=== PATIENT | female | born 1935 | race Caucasian/White ===

== ENCOUNTER 2016-09-05 12:22 | Observation (INO) | payer OTHER ==
[~2016-09-05] VITALS: Ht 162.6 cm; Wt 65.7 kg
--- NOTE | 2016-09-05 12:53 | DIAGNOSTIC IMAGING REPORT ---
PROCEDURE: CT HEAD WITHOUT CONTRAST INDICATION: STROKE TECHNIQUE: Noncontrast axial images with sagittal and coronal reformations. COMPARISON: None. FINDINGS: Moderate cortical atrophy. Normal ventricular system. Moderate white matter chronic ischemic changes which may obscure a small acute CVA. There is no evidence of a hemorrhage, mass or midline shift. Extensive atherosclerosis of the vertebral and carotid arteries. Partially opacified right mastoid air cells. Visualized sinuses are clear. IMPRESSION: 1. Moderate atrophy and white matter chronic ischemic changes. A small acute CVA could be obscured by these underlying chronic ischemic changes. MRI may be useful for further evaluation if clinically warranted. 2. Partial right mastoid air cells opacification suggestive of mastoiditis 3. Findings discussed with Dr. Jerry at 12:49 p.m., [place] Standard Time
--- NOTE | 2016-09-05 12:56 | DIAGNOSTIC IMAGING REPORT ---
PROCEDURE: XR CHEST 1 VIEW INDICATION: SHORTNESS OF BREATH TECHNIQUE: Portable AP view 12:46 p.m. COMPARISON: None. FINDINGS: Lungs are clear. Heart and mediastinum are normal. Thorax is normal. IMPRESSION: 1. Negative chest.
--- NOTE | 2016-09-05 13:59 | DIAGNOSTIC IMAGING REPORT ---
PROCEDURE: US BILATERAL CAROTID DOPPLER INDICATION: UNILATERAL WEAKNESS TECHNIQUE: Color Doppler duplex imaging of the carotid and vertebral vessels. COMPARISON: None. FINDINGS: Minimal plaque formation of the bifurcations bilaterally. Vessels are patent. Cardiac arrhythmia. Right common carotid artery peak systolic velocity 87 cm/second. Right internal carotid artery peak systolic velocity 87 cm/second. Right external carotid artery peak systolic velocity 84 cm/second. Right bspbsnhl-oj-vqzwzu carotid artery ratio 1.0 Right vertebral artery peak systolic velocity 29 cm/second antegrade. Left common carotid artery peak systolic velocity 70 cm/second. Left internal carotid artery peak systolic velocity 79 cm/second. Left external carotid artery peak systolic velocity 78 cm/second. Left gkudegsc-of-pxxlld carotid artery ratio 1.1 Left vertebral artery peak systolic velocity 45 cm/second antegrade. IMPRESSION: 1. Minimal plaque formation of the bifurcations bilaterally 2. Bilateral ICA 5-15% stenosis 3. Cardiac arrhythmia Velocity criteria are extrapolated from diameter data as defined by the Society of Radiologists in Ultrasound Consensus Conference, Radiology 2003; 229; 340-346.
--- NOTE | 2016-09-05 13:59 | DIAGNOSTIC IMAGING REPORT ---
PROCEDURE: US BILATERAL CAROTID DOPPLER INDICATION: UNILATERAL WEAKNESS TECHNIQUE: Color Doppler duplex imaging of the carotid and vertebral vessels. COMPARISON: None. FINDINGS: Minimal plaque formation of the bifurcations bilaterally. Vessels are patent. Cardiac arrhythmia. Right common carotid artery peak systolic velocity 87 cm/second. Right internal carotid artery peak systolic velocity 87 cm/second. Right external carotid artery peak systolic velocity 84 cm/second. Right khptjxoe-fb-rgilxb carotid artery ratio 1.0 Right vertebral artery peak systolic velocity 29 cm/second antegrade. Left common carotid artery peak systolic velocity 70 cm/second. Left internal carotid artery peak systolic velocity 79 cm/second. Left external carotid artery peak systolic velocity 78 cm/second. Left evsmuwri-nk-lpgbbq carotid artery ratio 1.1 Left vertebral artery peak systolic velocity 45 cm/second antegrade. IMPRESSION: 1. Minimal plaque formation of the bifurcations bilaterally 2. Bilateral ICA 5-15% stenosis 3. Cardiac arrhythmia Velocity criteria are extrapolated from diameter data as defined by the Society of Radiologists in Ultrasound Consensus Conference, Radiology 2003; 229; 340-346.
--- NOTE | 2016-09-05 15:09 | ED CLINICAL REPORT ---
Clinical Report - Physicians/Mid Levels [facility] [address] [place] [address] 09/05/2016 12:24 Patient: NAVYA CUETO Time Seen: 12:27. Arrived- By ambulance. Historian- patient and EMS personnel. HISTORY OF PRESENT ILLNESS Chief Complaint: WEAKNESS, DIFFICULTY WALKING and IMPAIRED SPEECH. ALTERED CONSCIOUSNESS. This started about 1 hour 45 minutes ago; but she also states that she had a brief, similar episode yesterday and is still present. It was abrupt in onset and has been waxing/waning. The patient has had weakness of the right arm and right hand. She has had difficulty with speech. She has had moderate difficulty walking. It has been associated with weakness in the right leg. At its maximum deficit described as moderate. When seen in the E.D., it was almost gone. No dizziness, seizure or blackouts. She has had altered mental status (initially states she was confused). Usually is alert and oriented X3 and has normal mobility. Similar symptoms previously: None. Recent medical care: The patient was seen recently in a clinic. REVIEW OF SYSTEMS No fever, headache, head injury, chest pain or difficulty breathing. No cough, sore throat, abdominal pain, nausea or diarrhea. No black stools, difficulty with urination, skin rash, enlarged lymph nodes or bloody stools. The patient has had lower back pain. It has been similar to previous symptoms. All systems otherwise negative, except as recorded above. PAST HISTORY Chronic obstructive pulmonary disease. Hyperlipidemia. Hypothyroidism. Seizures per old record - unclear history. GI bleeding felt to be diverticular in origin per patient report - [place] [facility] [place] Mateo Gardner (GI) consulting. Polyps (colon). GE reflux. Fibroids. Arthritis (especially right hip). Left shoulder rotator cuff tear (partial). Back pain: (with DDD and DJD). Anxiety problems. Depression. ( First deg AV block ARCUS (atypical squamous cells of undetermined significance)). ( Chronic Tinnitus left ear). ( cervical radiculopathy). ( Polymyalgia Rheumatica). ( vitamin D deficiency). Surgeries: Cholecystectomy. Colonoscopy. Had complete abdominal hysterectomy with bilateral salpingectomy and oophorectomy. Thyroid surgery. Medications: Diclofenac Epolamine Transdermal, QID. Levothyroxine Sodium Oral 112 mcg, daily. Losartan Potassium Oral 100 mg, daily. Magnesium Oral. Multivitamins Oral. Pravastatin Sodium Oral (Tablet 10 mg), 2x a day. Tiffanie-C Oral. Folic Acid Oral (Tablet 1 mg), daily. Lidoderm External (Patch 5 %), daily (Remove patch nightly). Omeprazole Oral 20 mg, daily. PredniSONE Oral 15 mg, daily. Prenate Oral. Sertraline HCl Oral 50 mg, daily. Allergies: Amoxicillin. Atorvastatin. Flu Virus Vaccine. LIsinopril. Macrobid. Statins. Sulfa Antibiotics. SOCIAL HISTORY Former smoker, end date 1988. Occasional alcohol use. No drug use. FAMILY HISTORY Mother and Father are ; One sister who is alive. ADDITIONAL NOTES The nursing notes have been reviewed. PHYSICAL EXAM Vital Signs: 09/05/2016 12:33 BP: 219/76. HR: 82. RR: 20. O2 saturation: 100%. Temp: 97.5 F. End tidal CO2: 35 mmHg. Pain level now: 0/10. Appearance: Alert. Anxious. Patient in mild distress. Odor of alcohol is not present. Speech is not slurred. Head: Head atraumatic. Eyes: Pupils equal, round and reactive to light. ENT: Normal ENT inspection. Airway intact. Pharynx normal. Neck: Normal inspection. Neck supple. No meningeal signs or carotid bruit. CVS: Normal heart rate and rhythm. Pulses normal. Respiratory: No respiratory distress. Breath sounds normal. Abdomen: Soft and nontender. Back: Normal inspection. Mild soft-tissue tenderness in the right lower and left lower lumbar area. (OTC (?lidocaine) patches on the SI area bilaterally; no signs of erythema, warmth or swelling). Skin: No cyanosis. Skin warm and dry. No pallor. Normal skin color. No rash. Normal skin turgor. Skin not cool on palpation. No diaphoresis. Extremities: Extremities exhibit normal ROM. No calf tenderness. No lower extremity edema. Neuro: Alert. Oriented X 3. Abnormal mood/affect. Speech normal. Cranial nerves normal (as tested). No cerebellar findings. No motor deficit. No sensory deficit. Reflexes normal. Reflex exam: right biceps 2+, left biceps 2+, right patellar 2+ and left patellar 2+. NIH Stroke Scale: score 0. Level of Consciousness: alert (0). LOC Questions: both (0). LOC Commands: both (0). Best gaze: normal (0). Visual field loss: none (0). Facial palsy: normal (0). Motor arm: no drift right arm (0) and no drift left arm (0). Motor leg: no drift right leg (0) and no drift left leg (0). Limb ataxia: none (0). Sensory loss: none (0). Aphasia: none (0). Dysarthria: normal (0). Extinction and inattention: none (0). LABS, X-RAYS, AND EKG EKG: EKG time: (12:57). Normal sinus rhythm. Rate: 80. Normal P waves. Normal SHARMIN. Normal QRS complex. LVH. Left axis deviation. Non-specific ST segment / T wave abnormalities. The study has been interpreted contemporaneously by me. The EKG appears to be a good tracing. Rhythm Strip #1: Normal sinus rhythm. Regular rhythm. Narrow QRS complexes. No ectopy. Chest X-ray: No acute disease. Normal lung markings present. Normal heart size. Mediastinum normal. Great vessels normal. No infiltrate. Views: AP (portable). Technique: good. The X-rays were interpreted contemporaneously by me. The X-rays were discussed with the radiologist (via PACs note). Duplex Ultrasound: Right and left carotid study. Negative results. The exam was performed by a marine engineering technicians. The study was discussed with the radiologist (via tech). MRI Brain: Note- PROCEDURE: MR BRAIN WITHOUT CONTRAST INDICATION: ALTERED MENTAL STATUS TECHNIQUE: Sagittal T1 FLAIR; coronal T2; axial T1 FLAIR, T2-weighted FLAIR, T2 FSE, gradient echo T2, DWI and ADC sequences. COMPARISON: Head CT 09/05/2016. FINDINGS: Moderate cortical atrophy and white matter chronic ischemic changes bilaterally. Mild chronic ischemic changes of the miriam. There is no evidence of an acute CVA, hemorrhage, mass or midline shift. Normal vascular flow voids. Orbits and sinuses are clear. Opacification of the mastoids bilaterally. IMPRESSION: 1. No evidence of an acute CVA 2. Moderate atrophy 3. Moderate white matter and mild pontine chronic ischemic changes 4. Opacification of the mastoids bilaterally suggestive of mastoiditis. Study type: The study was independently viewed by me, interpreted by the radiologist and discussed with the radiologist. Laboratory Tests: UA-Culture if indicated: (EUSEBIA: 09/05/2016 12:55) ( MsgRcvd 09/05/2016 13:40) Final results Test Result Flag Units (Reference) URINE COLOR STRAW URINE APPEARANCE CLEAR URINE GLUCOSE NEGATIVE (NEGATIVE) URINE BILIRUBIN NEGATIVE (NEGATIVE) URINE KETONE NEGATIVE (NEGATIVE) URINE SPECIFIC GRAVITY 1.010 (1.010-1.030) URINE PH 7.0 (5.0-8.0) URINE PROTEIN NEGATIVE (NEGATIVE) URINE UROBILINOGEN 0.2 EU/dL (0.2-1.0) URINE NITRITE NEGATIVE (NEGATIVE) URINE BLOOD 1+ (NEGATIVE) URINE LEUK ESTERASE NEGATIVE (NEGATIVE) URINE RBC NONE SEEN rbc/hpf (0-1) URINE WBC NONE SEEN wbc/hpf (0-1) URINE EPITHELIAL CELLS NONE SEEN EPI/hpf (0-5) URINE BACTERIA NONE SEEN (NONE SEEN) URINE COMMENT CULT NOT INDICATED URINE CULTURES ARE SET-UP BASED ON THE FOLLOWING CRITERIA:POSITIVE NITRITEPOSITIVE LEUKOCYTE ESTERASEGREATER THAN 10 WHITE BLOOD CELLSMODERATE (2+) OR GREATER BACTERIA CBC w Diff: (EUSEBIA: 09/05/2016 12:35) ( MsgRcvd 09/05/2016 12:46) Final results Test Result Flag Units (Reference) WHITE BLOOD COUNT 11.8 H K/uL (4.5-11.5) RED BLOOD COUNT 4.31 M/uL (4.00-5.20) HEMOGLOBIN 12.7 gm/dL (12.0-16.0) HEMATOCRIT 38.1 % (36.0-46.0) MEAN CELL VOLUME 88 fL (80-100) MEAN CORPUSCULAR HGB 29 pg (26-34) MEAN CORPUSCULAR HGB CONC 33 g/dL (31-37) RED CELL DISTRIBUTION WIDTH 15.3 H % (11.6-14.8) PLATELET COUNT 351 K/uL (150-400) NEUTROPHIL % 85.5 H % (50-75) LYMPH % 9.1 L % (25-40) MONO % 4.5 % (3-14) EOSINOPHIL % 0.5 % (0-4) BASOPHIL % 0.4 % (0-2) PT with INR: (EUSEBIA: 09/05/2016 12:35) ( [facility] Final results Test Result Flag Units (Reference) INR 1.0 (0.8-1.2) Low Intensity Therapy: INR 1.5-2.0 PT range 18.5-23.1Mod.Intensity Therapy: INR 2.0-3.0 PT range 23.1-31.5High Intensity Therapy: INR 2.5-3.5 PT range 27.4-35.5High Intensity Therapy 2: INR 3.0-4.0 PT range 31.5-39.3 APTT 29 SECONDS (24-34) FIBRINOGEN 370 mg/dL (193-455) D-DIMER QUANTITATIVE 0.51 ug/mLFEU (0.27-0.52) The primary value of this quantitative assay relates toits negative predictive value (i.e. exclusion) of pulmonaryembolism/deep vein thrombosis/DIC.Elevated levels of d-dimer may also occur with:, age, cancer, inflammation, liver disease,post-op, infection, hematoma, coronary disease, peripheralarteriopathy, bleeding disorders and thrombolytic treatment.Results should be correlated with other clinical andradiological data.Testing Methodology: Latex Immunoassay Urine Drug Screen: (EUSEBIA: 09/05/2016 12:55) ( MsgRcvd 09/05/2016 13:17) Final results Test Result Flag Units (Reference) AMPHETAMINE/METHAMPHETAMINE NEGATIVE (NEGATIVE) BARBITURATE NEGATIVE (NEGATIVE) BENZODIAZEPINE NEGATIVE (NEGATIVE) CANNABINOID NEGATIVE (NEGATIVE) COCAINE NEGATIVE (NEGATIVE) ECSTASY NEGATIVE (NEGATIVE) METHADONE NEGATIVE (NEGATIVE) OPIATE NEGATIVE (NEGATIVE) The urine drug screen is a qualitative screening test fordrug overdose and abuse. All screen results should beconsidered as presumptive.Drugs screened for are as follows:BenzodiazepinesCocaineAmphetamines/MetamphetaminesTHC (Tetrahydrocannabinol)OpiatesBarbituratesEcstasyMethadonePositive results are unconfirmed. For confirmation, notifythe lab for the specimen to be sent to the reference lab.All confirmations must be performed by a differentmethodology.The ingestion of natural herbal and plant productscontaining Ephedra/Ephedra metabolites can produce in urineone or more substances capable of cross reacting withamphetamine/methamphetamine immunoassays. These testsprovide a preliminary result only. A more specificalternative chemical method must be used to obtain aconfirmed analytical result. [id number]: (EUSEBIA: 09/05/2016 12:35) ( MsgRcvd 09/05/2016 14:02) Final results Test Result Flag Units (Reference) CARBAMAZEPINE/TEGRETOL < 0.5 L ug/mL (4.0-12.0) CHEM 13 PANEL: (EUSEBIA: 09/05/2016 12:35) ( NvgRcvd 09/05/2016 14:41) Final results Test Result Flag Units (Reference) GLUCOSE 94 mg/dL (70-110) BUN 23 H mg/dL (7-18) CREATININE 0.8 mg/dL (0.6-1.3) Estimated GFR >60 mL/min Estimated GFR- >60 mL/min Note: Persistent reduction over 3 months in eGFR<60 mL/min/1.73 m2 defines CKD. Patients with eGFR values>=60 mL/min/1.73 m2 may also have CKD if evidence ofpersistent proteinuria. Additional information may be foundat [email or web address].org. SODIUM 136 mmol/L (136-145) POTASSIUM 3.8 mmol/L (3.5-5.1) CHLORIDE 99 mmol/L (98-107) CARBON DIOXIDE 24 mmol/L (21-32) CALCIUM 9.2 mg/dL (8.5-10.1) TOTAL PROTEIN 7.1 g/dL (6.4-8.2) ALBUMIN 3.6 g/dL (3.3-5.0) BILIRUBIN, TOTAL 0.3 mg/dL (0.0-1.0) ALKALINE PHOSPHATASE 61 U/L (46-116) AST (SGOT) 19 U/L (15-37) ALT (SGPT) 23 U/L (12-78) MAGNESIUM 1.5 L mg/dL (1.8-2.4) CPK 44 U/L (24-260) TROPONIN I <0.05 L ng/mL (0.00-1.5) TROPONIN REFERENCE RANGE:<0.1 NEGATIVE0.1-1.5 INDETERMINANT>1.5 POSITIVE THYROID STIMULATING HORMONE 1.011 uIU/mL (0.30-3.74) Type & Screen: (EUSEBIA: 09/05/2016 12:35) ( MsgRcvd 09/05/2016 13:54) Final results Test Result Flag Units (Reference) PATIENT BLOOD TYPE O Positive ANTIBODY SCREEN NEGATIVE . Pulse Oximetry: 09/05/2016 12:33 O2 saturation: 100%. (FIO2 - room air). Interpretation: normal. PROGRESS AND PROCEDURES Course of Care: ASA 325 mg po. Metoprolol 5 mg IV. 1 L NS IV. Dilaudid 0.5mg IV (given prior to MRI). Pt has remained asymptomatic in the ED. Most c.w TIA. Pt will need to be admitted for further work up / testing / monitoring. Pt was refusing ASA; now accepting after long discussion of risks and benefits. 15:20 09/05/16. Dr Dueñas request MRI today - will attempt. 15:31 09/05/16. Pt was refusing MRI; now accepting after long discussion of risks and benefits. MRI is unremarkable now. Discussed case with hospitalist, (Leana). Reviewed test results. Agreed upon treatment plan. Health care provider will see patient in ED. Patient/family counseled. Old ED, inpatient and clinic records reviewed. (records from [facility] and [facility] [place] ordered and reviewed). Transition orders written. Disposition: Observation in Acute Care. Condition: stable and improved. 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 Uncontrolled essential hypertension. Mild hypomagnesemia. Mild leukocytosis. No lymphocytosis. Chronic low back pain. INSTRUCTIONS Follow-up: Screening today revealed the patient's blood pressure to be in the hypertensive range. The patient should follow up with a primary care provider for blood pressure management. The patient was admitted and blood pressure will be managed during the admission. (Electronically signed by Reza Jerry DO 09/05/2016 17:30)
--- NOTE | 2016-09-05 15:09 | ED CLINICAL REPORT ---
Clinical Report - Physicians/Mid Levels [facility] [address] [place] [address] 09/05/2016 12:24 Patient: NAVYA CUETO Time Seen: 12:27. Arrived- By ambulance. Historian- patient and EMS personnel. HISTORY OF PRESENT ILLNESS Chief Complaint: WEAKNESS, DIFFICULTY WALKING and IMPAIRED SPEECH. ALTERED CONSCIOUSNESS. This started about 1 hour 45 minutes ago; but she also states that she had a brief, similar episode yesterday and is still present. It was abrupt in onset and has been waxing/waning. The patient has had weakness of the right arm and right hand. She has had difficulty with speech. She has had moderate difficulty walking. It has been associated with weakness in the right leg. At its maximum deficit described as moderate. When seen in the E.D., it was almost gone. No dizziness, seizure or blackouts. She has had altered mental status (initially states she was confused). Usually is alert and oriented X3 and has normal mobility. Similar symptoms previously: None. Recent medical care: The patient was seen recently in a clinic. REVIEW OF SYSTEMS No fever, headache, head injury, chest pain or difficulty breathing. No cough, sore throat, abdominal pain, nausea or diarrhea. No black stools, difficulty with urination, skin rash, enlarged lymph nodes or bloody stools. The patient has had lower back pain. It has been similar to previous symptoms. All systems otherwise negative, except as recorded above. PAST HISTORY Chronic obstructive pulmonary disease. Hyperlipidemia. Hypothyroidism. Seizures per old record - unclear history. GI bleeding felt to be diverticular in origin per patient report - admitted to [facility] 05/18/[address] Mateo Gardner (GI) consulting. Polyps (colon). GE reflux. Fibroids. Arthritis (especially right hip). Left shoulder rotator cuff tear (partial). Back pain: (with DDD and DJD). Anxiety problems. Depression. ( First deg AV block ARCUS (atypical squamous cells of undetermined significance)). ( Chronic Tinnitus left ear). ( cervical radiculopathy). ( Polymyalgia Rheumatica). ( vitamin D deficiency). Surgeries: Cholecystectomy. Colonoscopy. Had complete abdominal hysterectomy with bilateral salpingectomy and oophorectomy. Thyroid surgery. Medications: Diclofenac Epolamine Transdermal, QID. Levothyroxine Sodium Oral 112 mcg, daily. Losartan Potassium Oral 100 mg, daily. Magnesium Oral. Multivitamins Oral. Pravastatin Sodium Oral (Tablet 10 mg), 2x a day. Tiffanie-C Oral. Folic Acid Oral (Tablet 1 mg), daily. Lidoderm External (Patch 5 %), daily (Remove patch nightly). Omeprazole Oral 20 mg, daily. PredniSONE Oral 15 mg, daily. Prenate Oral. Sertraline HCl Oral 50 mg, daily. Allergies: Amoxicillin. Atorvastatin. Flu Virus Vaccine. LIsinopril. Macrobid. Statins. Sulfa Antibiotics. SOCIAL HISTORY Former smoker, end date 1988. Occasional alcohol use. No drug use. FAMILY HISTORY Mother and Father are ; One sister who is alive. ADDITIONAL NOTES The nursing notes have been reviewed. PHYSICAL EXAM Vital Signs: 09/05/2016 12:33 BP: 219/76. HR: 82. RR: 20. O2 saturation: 100%. Temp: 97.5 F. End tidal CO2: 35 mmHg. Pain level now: 0/10. Appearance: Alert. Anxious. Patient in mild distress. Odor of alcohol is not present. Speech is not slurred. Head: Head atraumatic. Eyes: Pupils equal, round and reactive to light. ENT: Normal ENT inspection. Airway intact. Pharynx normal. Neck: Normal inspection. Neck supple. No meningeal signs or carotid bruit. CVS: Normal heart rate and rhythm. Pulses normal. Respiratory: No respiratory distress. Breath sounds normal. Abdomen: Soft and nontender. Back: Normal inspection. Mild soft-tissue tenderness in the right lower and left lower lumbar area. (OTC (?lidocaine) patches on the SI area bilaterally; no signs of erythema, warmth or swelling). Skin: No cyanosis. Skin warm and dry. No pallor. Normal skin color. No rash. Normal skin turgor. Skin not cool on palpation. No diaphoresis. Extremities: Extremities exhibit normal ROM. No calf tenderness. No lower extremity edema. Neuro: Alert. Oriented X 3. Abnormal mood/affect. Speech normal. Cranial nerves normal (as tested). No cerebellar findings. No motor deficit. No sensory deficit. Reflexes normal. Reflex exam: right biceps 2+, left biceps 2+, right patellar 2+ and left patellar 2+. NIH Stroke Scale: score 0. Level of Consciousness: alert (0). LOC Questions: both (0). LOC Commands: both (0). Best gaze: normal (0). Visual field loss: none (0). Facial palsy: normal (0). Motor arm: no drift right arm (0) and no drift left arm (0). Motor leg: no drift right leg (0) and no drift left leg (0). Limb ataxia: none (0). Sensory loss: none (0). Aphasia: none (0). Dysarthria: normal (0). Extinction and inattention: none (0). LABS, X-RAYS, AND EKG EKG: EKG time: (12:57). Normal sinus rhythm. Rate: 80. Normal P waves. Normal SHARMIN. Normal QRS complex. LVH. Left axis deviation. Non-specific ST segment / T wave abnormalities. The study has been interpreted contemporaneously by me. The EKG appears to be a good tracing. Rhythm Strip #1: Normal sinus rhythm. Regular rhythm. Narrow QRS complexes. No ectopy. Chest X-ray: No acute disease. Normal lung markings present. Normal heart size. Mediastinum normal. Great vessels normal. No infiltrate. Views: AP (portable). Technique: good. The X-rays were interpreted contemporaneously by me. The X-rays were discussed with the radiologist (via PACs note). Duplex Ultrasound: Right and left carotid study. Negative results. The exam was performed by a electronics repair technician. The study was discussed with the radiologist (via tech). MRI Brain: Note- PROCEDURE: MR BRAIN WITHOUT CONTRAST INDICATION: ALTERED MENTAL STATUS TECHNIQUE: Sagittal T1 FLAIR; coronal T2; axial T1 FLAIR, T2-weighted FLAIR, T2 FSE, gradient echo T2, DWI and ADC sequences. COMPARISON: Head CT 09/05/2016. FINDINGS: Moderate cortical atrophy and white matter chronic ischemic changes bilaterally. Mild chronic ischemic changes of the miriam. There is no evidence of an acute CVA, hemorrhage, mass or midline shift. Normal vascular flow voids. Orbits and sinuses are clear. Opacification of the mastoids bilaterally. IMPRESSION: 1. No evidence of an acute CVA 2. Moderate atrophy 3. Moderate white matter and mild pontine chronic ischemic changes 4. Opacification of the mastoids bilaterally suggestive of mastoiditis. Study type: The study was independently viewed by me, interpreted by the radiologist and discussed with the radiologist. Laboratory Tests: UA-Culture if indicated: (EUSEBIA: 09/05/2016 12:55) ( MsgRcvd 09/05/2016 13:40) Final results Test Result Flag Units (Reference) URINE COLOR STRAW URINE APPEARANCE CLEAR URINE GLUCOSE NEGATIVE (NEGATIVE) URINE BILIRUBIN NEGATIVE (NEGATIVE) URINE KETONE NEGATIVE (NEGATIVE) URINE SPECIFIC GRAVITY 1.010 (1.010-1.030) URINE PH 7.0 (5.0-8.0) URINE PROTEIN NEGATIVE (NEGATIVE) URINE UROBILINOGEN 0.2 EU/dL (0.2-1.0) URINE NITRITE NEGATIVE (NEGATIVE) URINE BLOOD 1+ (NEGATIVE) URINE LEUK ESTERASE NEGATIVE (NEGATIVE) URINE RBC NONE SEEN rbc/hpf (0-1) URINE WBC NONE SEEN wbc/hpf (0-1) URINE EPITHELIAL CELLS NONE SEEN EPI/hpf (0-5) URINE BACTERIA NONE SEEN (NONE SEEN) URINE COMMENT CULT NOT INDICATED URINE CULTURES ARE SET-UP BASED ON THE FOLLOWING CRITERIA:POSITIVE NITRITEPOSITIVE LEUKOCYTE ESTERASEGREATER THAN 10 WHITE BLOOD CELLSMODERATE (2+) OR GREATER BACTERIA CBC w Diff: (EUESBIA: 09/05/2016 12:35) ( MsgRcvd 09/05/2016 12:46) Final results Test Result Flag Units (Reference) WHITE BLOOD COUNT 11.8 H K/uL (4.5-11.5) RED BLOOD COUNT 4.31 M/uL (4.00-5.20) HEMOGLOBIN 12.7 gm/dL (12.0-16.0) HEMATOCRIT 38.1 % (36.0-46.0) MEAN CELL VOLUME 88 fL (80-100) MEAN CORPUSCULAR HGB 29 pg (26-34) MEAN CORPUSCULAR HGB CONC 33 g/dL (31-37) RED CELL DISTRIBUTION WIDTH 15.3 H % (11.6-14.8) PLATELET COUNT 351 K/uL (150-400) NEUTROPHIL % 85.5 H % (50-75) LYMPH % 9.1 L % (25-40) MONO % 4.5 % (3-14) EOSINOPHIL % 0.5 % (0-4) BASOPHIL % 0.4 % (0-2) PT with INR: (EUSEBIA: 09/05/2016 12:35) ( [facility] Final results Test Result Flag Units (Reference) INR 1.0 (0.8-1.2) Low Intensity Therapy: INR 1.5-2.0 PT range 18.5-23.1Mod.Intensity Therapy: INR 2.0-3.0 PT range 23.1-31.5High Intensity Therapy: INR 2.5-3.5 PT range 27.4-35.5High Intensity Therapy 2: INR 3.0-4.0 PT range 31.5-39.3 APTT 29 SECONDS (24-34) FIBRINOGEN 370 mg/dL (193-455) D-DIMER QUANTITATIVE 0.51 ug/mLFEU (0.27-0.52) The primary value of this quantitative assay relates toits negative predictive value (i.e. exclusion) of pulmonaryembolism/deep vein thrombosis/DIC.Elevated levels of d-dimer may also occur with:, age, cancer, inflammation, liver disease,post-op, infection, hematoma, coronary disease, peripheralarteriopathy, bleeding disorders and thrombolytic treatment.Results should be correlated with other clinical andradiological data.Testing Methodology: Latex Immunoassay Urine Drug Screen: (EUSEBIA: 09/05/2016 12:55) ( MsgRcvd 09/05/2016 13:17) Final results Test Result Flag Units (Reference) AMPHETAMINE/METHAMPHETAMINE NEGATIVE (NEGATIVE) BARBITURATE NEGATIVE (NEGATIVE) BENZODIAZEPINE NEGATIVE (NEGATIVE) CANNABINOID NEGATIVE (NEGATIVE) COCAINE NEGATIVE (NEGATIVE) ECSTASY NEGATIVE (NEGATIVE) METHADONE NEGATIVE (NEGATIVE) OPIATE NEGATIVE (NEGATIVE) The urine drug screen is a qualitative screening test fordrug overdose and abuse. All screen results should beconsidered as presumptive.Drugs screened for are as follows:BenzodiazepinesCocaineAmphetamines/MetamphetaminesTHC (Tetrahydrocannabinol)OpiatesBarbituratesEcstasyMethadonePositive results are unconfirmed. For confirmation, notifythe lab for the specimen to be sent to the reference lab.All confirmations must be performed by a differentmethodology.The ingestion of natural herbal and plant productscontaining Ephedra/Ephedra metabolites can produce in urineone or more substances capable of cross reacting withamphetamine/methamphetamine immunoassays. These testsprovide a preliminary result only. A more specificalternative chemical method must be used to obtain aconfirmed analytical result. [id number]: (EUSEBIA: 09/05/2016 12:35) ( MsgRcvd 09/05/2016 14:02) Final results Test Result Flag Units (Reference) CARBAMAZEPINE/TEGRETOL < 0.5 L ug/mL (4.0-12.0) CHEM 13 PANEL: (EUSEBIA: 09/05/2016 12:35) ( WvgRcvd 09/05/2016 14:41) Final results Test Result Flag Units (Reference) GLUCOSE 94 mg/dL (70-110) BUN 23 H mg/dL (7-18) CREATININE 0.8 mg/dL (0.6-1.3) Estimated GFR >60 mL/min Estimated GFR- >60 mL/min Note: Persistent reduction over 3 months in eGFR<60 mL/min/1.73 m2 defines CKD. Patients with eGFR values>=60 mL/min/1.73 m2 may also have CKD if evidence ofpersistent proteinuria. Additional information may be foundat www.kidney.org. SODIUM 136 mmol/L (136-145) POTASSIUM 3.8 mmol/L (3.5-5.1) CHLORIDE 99 mmol/L (98-107) CARBON DIOXIDE 24 mmol/L (21-32) CALCIUM 9.2 mg/dL (8.5-10.1) TOTAL PROTEIN 7.1 g/dL (6.4-8.2) ALBUMIN 3.6 g/dL (3.3-5.0) BILIRUBIN, TOTAL 0.3 mg/dL (0.0-1.0) ALKALINE PHOSPHATASE 61 U/L (46-116) AST (SGOT) 19 U/L (15-37) ALT (SGPT) 23 U/L (12-78) MAGNESIUM 1.5 L mg/dL (1.8-2.4) CPK 44 U/L (24-260) TROPONIN I <0.05 L ng/mL (0.00-1.5) TROPONIN REFERENCE RANGE:<0.1 NEGATIVE0.1-1.5 INDETERMINANT>1.5 POSITIVE THYROID STIMULATING HORMONE 1.011 uIU/mL (0.30-3.74) Type & Screen: (EUSEBIA: 09/05/2016 12:35) ( MsgRcvd 09/05/2016 13:54) Final results Test Result Flag Units (Reference) PATIENT BLOOD TYPE O Positive ANTIBODY SCREEN NEGATIVE . Pulse Oximetry: 09/05/2016 12:33 O2 saturation: 100%. (FIO2 - room air). Interpretation: normal. PROGRESS AND PROCEDURES Course of Care: ASA 325 mg po. Metoprolol 5 mg IV. 1 L NS IV. Dilaudid 0.5mg IV (given prior to MRI). Pt has remained asymptomatic in the ED. Most c.w TIA. Pt will need to be admitted for further work up / testing / monitoring. Pt was refusing ASA; now accepting after long discussion of risks and benefits. 15:20 09/05/16. Dr Dueñas request MRI today - will attempt. 15:31 09/05/16. Pt was refusing MRI; now accepting after long discussion of risks and benefits. MRI is unremarkable now. Discussed case with hospitalist, (Leana). Reviewed test results. Agreed upon treatment plan. Health care provider will see patient in ED. Patient/family counseled. Old ED, inpatient and clinic records reviewed. (records from [facility] and [facility] ordered and reviewed). Transition orders written. Disposition: Observation in Acute Care. Condition: stable and improved. 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 Uncontrolled essential hypertension. Mild hypomagnesemia. Mild leukocytosis. No lymphocytosis. Chronic low back pain. INSTRUCTIONS Follow-up: Screening today revealed the patient's blood pressure to be in the hypertensive range. The patient should follow up with a primary care provider for blood pressure management. The patient was admitted and blood pressure will be managed during the admission. (Electronically signed by Reza Jerry DO 09/05/2016 17:30)
--- NOTE | 2016-09-05 15:10 | ED ORDER SUMMARY ---
..... Patient: NAVYA CUETO OrderSheet [facility] VisitID: [id number] [address] [place] [address] 80y, F Registration Date/Time: 09/05/2016 ORDER SHEET Weight: 72 kg (measured) Allergies: Macrobid, Amoxicillin, Flu Virus Vaccine, Atorvastatin, LIsinopril, Sulfa Antibiotics, Statins GENERAL ORDERS: Chest 1V Urgent (12:32 09/05/2016 PHutchinson DO) (Ack 12:37 PWeiler ER Tech1) (12:46 KHoerner) CT Head wo Cont Urgent (12:[facility]05/2016 [facility] (Ack 12:37 PWeiler ER Tech1) (12:46 KHoerner) Lead Generation Specialist (Continuous) (12:[facility]05/[facility] (12:56 JSanders R.N.) Carbamazepine (Tegretol) Urgent (12:09/05/2016 [facility] (Ack 12:37 PWeiler ER Tech1) (13:01 JSanders R.N.) Cardiac Panel Stat (12:09/05/2016 [facility] (Ack 12:37 PWeiler ER Tech1) (12:58 JSanders R.N.) CBC w Diff Urgent (12:09/05/2016 PHwvchinson DO) (Ack 12:37 PWeiler ER Tech1) (12:58 JSanders R.N.) CMP Urgent (12:32 09/05/2016 PHwvchinson DO) (Ack 12:37 PWeiler ER Tech1) (12:58 JSanders R.N.) Fibrinogen Level Urgent (12:09/05/2016 PHwvchinson DO) (Ack 12:37 PWeiler ER Tech1) (12:58 JSanders R.N.) PT with INR Urgent ([facility] ([facility]ck 12:37 PWeiler ER Tech1) (12:58 JSanders R.N.) PTT Urgent (12:09/05/2016 [facility] (Ack 12:37 PWeiler ER Tech1) (12:58 JSanders R.N.) Stroke Panel Stat (12:32 09/05/2016 [facility] (Ack 12:37 PWeiler ER Tech1) (12:58 JSanders R.N.) Type & Screen Urgent (12:32 [facility]05[facility] (Ack 12:37 PWeiler ER Tech1) (12:58 JSanders R.N.) EKG - ER Stat (12:32 09/05/2016 PHwvchinson DO) (12:56 JSanders R.N.) (12:58 PWeiler ER Tech1) HOB @ 30 degrees & neck in neutral position (12:09/05/2016 [facility] (12:56 JSanders R.N.) NPO (12:09/05/2016 [facility]) (12:57 JSanders R.N.) Oxygen (2 L/min) (NC) (12:32 09/05/2016 [facility] (12:57 JSanders R.N.) POC Glucose (12:09/05/2016 [facility]) (13:01 JSanders R.N.) Pulse oximeter (12:09/05/2016 [facility]) (12:58 JSanders R.N.) Swallowing screen req on all pts prior to first PO intake (12:09/05/2016 [facility] (Ack 13:08 JSanders R.N.) (16:57 JSanders R.N.) Vitals - Neuro (12:32 [facility]05/[facility] (12:58 JSanders R.N.) Urine Drug Screen Urgent (12:09/05/2016 [facility] (Ack 12:38 PWeiler ER Tech1) (12:59 JSanders R.N.) UA-Culture if indicated Urgent (12:09/05/2016 [facility] (Ack 12:38 PWeiler ER Tech1) (12:59 JSanders R.N.) Old Records (from [facility]) (12:09/05/2016 [facility]) (12:36 KHoerner) US Carotid Doppler Bilat (report of right sided weakness and speech trouble) Urgent (12:57 09/05/2016 [facility]) (Ack 12:59 PWeiler ER Tech1) (13:06 KHoerner) TSH Urgent (13:02 09/05/2016 [facility]) (Ack 13:04 PWeiler ER Tech1) (13:06 KHoerner) Call (Place call to): (Dr Dueñas) (14:57 09/05/2016 [facility]) (15:20 PWeiler ER Tech1) (15:21 JSanders R.N.) MRI Brain w/wo IACS wo Cont (Not Applicable) Urgent (15:19 09/05/2016 [facility]) (Ack 15:21 PWeiler ER Tech1) (16:41 JSanders R.N.) MEDICATION ORDERS: Aspirin PO 325 mg (NOW) (15:13 09/05/2016 [facility]) (15:29 JSanders R.N.) IV FLUIDS: IV Saline Lock (12:32 09/05/2016 [facility]) (13:00 JSanders R.N.) Magnesium Sulfate IV 2 gm/50mL (over 2 hours) (14:49 09/05/2016 [facility]) (Ack 15:30 JSanders R.N.) (16:41 JSanders R.N.) Metoprolol IV 5 mg (HIGH ALERT MEDICATION, NOW) (15:13 09/05/2016 [facility]) (Ack 15:30 JSanders R.N.) (16:32 JSanders R.N.) Dilaudid IV 0.5 mg (HIGH ALERT MEDICATION, NOW) (15:30 09/05/2016 [facility]) (Cancelled: Patient [id number] JSanders R.N.) ORDER SHEET NOTES: [Electronically signed by Rebecca Hogan R.N. (17:03 09/05/2016)] [Electronically signed by Reza Jerry DO (17:30 09/05/2016)] [Electronically locked/signed by Rebecca Hogan R.N. (17:03 09/05/2016)]
--- NOTE | 2016-09-05 15:10 | ED ORDER SUMMARY ---
..... Patient: NAVYA CUETO OrderSheet [facility] VisitID: [id number] [address] [place] [address] 80y, F Registration Date/Time: 09/05/2016 ORDER SHEET Weight: 72 kg (measured) Allergies: Macrobid, Amoxicillin, Flu Virus Vaccine, Atorvastatin, LIsinopril, Sulfa Antibiotics, Statins GENERAL ORDERS: Chest 1V Urgent (12:32 09/05/2016 PHutchinson DO) (Ack 12:37 PWeiler ER Tech1) (12:46 KHoerner) CT Head wo Cont Urgent (12:09/05/2016 [facility] (Ack 12:37 PWeiler ER Tech1) (12:46 KHoerner) Dairy Husbandry Worker (Continuous) ([facility]05/2016 [facility] (12:56 JSanders R.N.) Carbamazepine (Tegretol) Urgent (12:09/05/2016 [facility]) (Ack 12:37 PWeiler ER Tech1) (13:01 JSanders R.N.) Cardiac Panel Stat (12:09/05/2016 [facility]) (Ack 12:37 PWeiler ER Tech1) (12:58 JSanders R.N.) CBC w Diff Urgent (12:09/05/2016 PHhichinson DO) (Ack 12:37 PWeiler ER Tech1) (12:58 JSanders R.N.) CMP Urgent (12:32 09/05/2016 PHhichinson DO) (Ack 12:37 PWeiler ER Tech1) (12:58 JSanders R.N.) Fibrinogen Level Urgent (12:09/05/2016 PHhichinson DO) (Ack 12:37 PWeiler ER Tech1) (12:58 JSanders R.N.) PT with INR Urgent ([facility] (Ack 12:37 PWeiler ER Tech1) (12:58 JSanders R.N.) PTT Urgent (12:09/05/2016 [facility]) (Ack 12:37 PWeiler ER Tech1) (12:58 JSanders R.N.) Stroke Panel Stat (12:32 09/05/2016 [facility]) (Ack 12:37 PWeiler ER Tech1) (12:58 JSanders R.N.) Type & Screen Urgent (12:32 09/05/2016 [facility] (Ack 12:37 PWeiler ER Tech1) (12:58 JSanders R.N.) EKG - ER Stat (12:32 09/05/2016 PHhichinson DO) (12:56 JSanders R.N.) (12:58 PWeiler ER Tech1) HOB @ 30 degrees & neck in neutral position (12:09/05/2016 [facility]) (12:56 JSanders R.N.) NPO (12:09/05/2016 [facility]) (12:57 JSanders R.N.) Oxygen (2 L/min) (NC) (12:32 09/05/2016 [facility]) (12:57 JSanders R.N.) POC Glucose (12:09/05/2016 [facility]) (13:01 JSanders R.N.) Pulse oximeter (12:09/05/2016 [facility]) (12:58 JSanders R.N.) Swallowing screen req on all pts prior to first PO intake (12:09/05/2016 [facility]) (Ack 13:08 JSanders R.N.) (16:57 JSanders R.N.) Vitals - Neuro (12:32 09/05/2016 [facility]) (12:58 JSanders R.N.) Urine Drug Screen Urgent (12:09/05/2016 [facility]) (Ack 12:38 PWeiler ER Tech1) (12:59 JSanders R.N.) UA-Culture if indicated Urgent (12:09/05/2016 [facility]) (Ack 12:38 PWeiler ER Tech1) (12:59 JSanders R.N.) Old Records (from [facility]) (12:09/05/2016 [facility]) (12:36 KHoerner) US Carotid Doppler Bilat (report of right sided weakness and speech trouble) Urgent (12:57 09/05/2016 [facility]) (Ack 12:59 PWeiler ER Tech1) (13:06 KHoerner) TSH Urgent (13:02 09/05/2016 [facility]) (Ack 13:04 PWeiler ER Tech1) (13:06 KHoerner) Call (Place call to): (Dr Dueñas) (14:57 09/05/2016 [facility]) (15:20 PWeiler ER Tech1) (15:21 JSanders R.N.) MRI Brain w/wo IACS wo Cont (Not Applicable) Urgent (15:19 09/05/2016 [facility]) (Ack 15:21 PWeiler ER Tech1) (16:41 JSanders R.N.) MEDICATION ORDERS: Aspirin PO 325 mg (NOW) (15:13 09/05/2016 [facility]) (15:29 JSanders R.N.) IV FLUIDS: IV Saline Lock (12:32 09/05/2016 [facility]) (13:00 JSanders R.N.) Magnesium Sulfate IV 2 gm/50mL (over 2 hours) (14:49 09/05/2016 [facility]) (Ack 15:30 JSanders R.N.) (16:41 JSanders R.N.) Metoprolol IV 5 mg (HIGH ALERT MEDICATION, NOW) (15:13 09/05/2016 [facility]) (Ack 15:30 JSanders R.N.) (16:32 JSanders R.N.) Dilaudid IV 0.5 mg (HIGH ALERT MEDICATION, NOW) (15:30 09/05/2016 [facility]) (Cancelled: Patient [id number] JSanders R.N.) ORDER SHEET NOTES: [Electronically signed by Rebecca Hogan R.N. (17:03 09/05/2016)] [Electronically signed by Reza Jerry DO (17:30 09/05/2016)] [Electronically locked/signed by Rebecca Hogan R.N. (17:03 09/05/2016)]
--- NOTE | 2016-09-05 15:10 | ED NURSING NOTES ---
Clinical Report - Nurses [facility] [address] [place] [address] 09/05/2016 12:24 Patient: NAVYA CUETO TRIAGE 12:33 09/05/16. BP: 219/76 (regular adult cuff) taken on the left arm, while sitting. HR: 82. RR: 20. O2 saturation: 100% on nasal cannula at 2 liters/minute. Temp: 97.5 F (oral). End tidal CO2: 35 mmHg. Pain level now: 0/10. --12:47 Rebecca Hogan R.N. late entry - 12:33 09/05/16. --13:15 Rebecca Hogan R.N. Triage time 12:Sep 05 2016. Acuity: LEVEL 2. Chief Complaint: (Patient states she was at home, sat down to write a list, started having difficulty remembering words, complained of right sided weakness, went to PCP who called medics to bring to ER for face asymetry, medics didnt notice any asymetrical changes to patient at the time they picked her up.). 12:47 09/05/16. SEPSIS SCREEN: Sepsis Screen. Negative (no infection suspected/documented). UMESH COMA SCORE: Umesh Coma Scale: 15- eyes open spontaneously (4); best verbal response- oriented x 4 (5); best motor response- obeys commands (6). --12:47 Rebecca Hogan R.N. Weight: 72 kg measured. Height/Length: 64 inches Per Patient. BMI: 27.3. --12:33 Rebecca Hogan R.N. Medications Folic Acid Oral (Tablet 1 mg), daily. Lidoderm External (Patch 5 %), daily (Remove patch nightly). Omeprazole Oral 20 mg, daily. PredniSONE Oral 15 mg, daily. Prenate Oral. Sertraline HCl Oral 50 mg, daily. --15:23 Alonso Sosa R.N. Levothyroxine Sodium Oral 112 mcg, daily. Losartan Potassium Oral 100 mg, daily. Magnesium Oral. Multivitamins Oral. Pravastatin Sodium Oral (Tablet 10 mg), 2x a day. Tiffanie-C Oral. --15:23 Alonso Sosa R.N. Diclofenac Epolamine Transdermal, QID. --15:27 Alonso Sosa R.N. Allergies Macrobid. --12:41 Rebecca Hogan R.N. Amoxicillin. --12:41 Rebecca Hogan R.N. Flu Virus Vaccine. --12:41 Rebecca Hogan R.N. Atorvastatin. --12:41 Rebecca Hogan R.N. LIsinopril. --12:41 Rebecca Hogan R.N. Sulfa Antibiotics. --12:41 Rebecca Hogan R.N. Statins. --12:42 Rebecca Hogan R.N. History Arrived by EMS. Historian: EMS and patient. This started just prior to arrival. Patient was last known well (1045 AM). Onset. (1045 AM). ( FAST in ER is normal). She has had localized weakness of the right arm and leg. Treatment PAPER BOX CUTTER: None. PAST MEDICAL HX: Immunizations: status is unknown. SOCIAL HX: Smoker- current status unknown. Occasional alcohol use; consumes wine. No drug use. No infectious disease exposure. ABUSE ASSESSMENT: No report of abuse. --12:47 Rebecca Hogan R.N. Treatment PAPER BOX CUTTER: See EMS report. EMS treatment PAPER BOX CUTTER verbally communicated and report reviewed. See report. Finger stick glucose performed (115). BP: 180 /80. HR: 88 (regular). RR: 14. O2 saturation: 98. End tidal CO2: 35 mmHg. --13:15 Rebecca Hogan R.N. PROBLEMS: GERD. Hypothyroidism. --12:44 Rebecca Hogan R.N. Osteoporosis. Degenerative Joint Disease. Arthritis. Anxiety Reaction. Hypercholesterolemia. Dizziness. Tinnitus. Seizure. First degree atrioventricular block. Depression. Emphysema. Hypertension. --12:47 Rebecca Hogan R.N. ADDITIONAL SURGERIES: Cholecystectomy. Hysterectomy. Thyroid Surgery. --12:47 Rebecca Hogan R.N. Interventions ID band on patient. To treatment room. --12:47 Rebecca Hogan R.N. PHYSICAL ASSESSMENT To room via stretcher. Patient gowned. ( FAST normal). GENERAL / NEURO / PSYCH: Awake. Oriented X 4. Speech normal. Mood/affect normal. No motor deficit. No sensory deficit. HEENT: No facial asymmetry noted. Pupils equal, round and reactive to light. Pharynx within normal limits. RESPIRATORY: Breath sounds within normal limits. Respirations not labored. CVS: Normal sinus rhythm noted. Capillary refill less than 2 seconds. SKIN: Skin is intact. Skin is cool. --12:55 Rebecca Hogan R.N. late entry - 12:55 09/05/16. GENERAL / NEURO / PSYCH: NIH Stroke Scale: score 0. Performed at 12:55 Sep 05 2016. Level of Consciousness: alert (0). LOC Questions: both (0). LOC Commands: both (0). Best gaze: normal (0). Visual field loss: none (0). Facial palsy: normal (0). Motor arm: no drift right arm (0) and no drift left arm (0). Motor leg: no drift right leg (0) and no drift left leg (0). Limb ataxia: none (0). Sensory loss: none (0). Aphasia: none (0). Dysarthria: normal (0). Extinction and inattention: none (0). --13:54 Rebecca Hogan R.N. NURSING PROGRESS NOTES 12:45 09/05/2016 Site #1 started via IV in the right antecubital space with an 18g angiocath, with aseptic technique and good blood return; one attempt. Saline lock flushed with 10 mL saline. --13:00 Rebecca Hogan R.N. Finger stick glucose: 97; performed by tech; result shown to the RN. --13:01 Rebecca Hogan R.N. EKG time: (1257). EKG was ordered, performed by a tech and shown to the ED physician. --13:03 Elyssa Bergman ER Tech1 13:04 09/05/16. BP: 196/82 (regular adult cuff) taken on the right arm, while lying. HR: 82 (regular and normal rate). RR: 20. O2 saturation: 100% on nasal cannula at 2 liters/minute. End tidal CO2: 30 mmHg. Pain level now: 0/10. --13:06 Rebecca Hogan R.N. ( US tech in with patient). --13:06 Rebecca Hogan R.N. late entry - 12:40 09/05/16. Patient transported to CT by stretcher with tech. --13:11 Rebecca Hogan R.N. late entry - 12:47 09/05/16. Patient returned from CT by stretcher with tech. --13:11 Rebecca Hogan R.N. 12:47 09/05/2016 Site #2 started prior to arrival by EMS via IV in the left antecubital space with an 18g angiocath, with aseptic technique and good blood return; one attempt. Saline lock flushed with 10 mL saline. --13:12 Rebecca Hogan R.N. 12:56 09/05/16. The plan of care for this patient has been created. Monitoring of patient in place. Patient gowned. Head of bed elevated. Reassurance given. Two patient identifiers checked. Call light placed in reach. Side rails up x 2. Bed placed in lowest position. Brakes of bed on. Patient ready for evaluation- chart flagged and ED physician notified. --12:56 Rebecca Hogan R.N. ( US finished with patient). --13:31 Rebecca Hogan R.N. 13:31 09/05/16. BP: 176/75 (regular adult cuff) taken on the right arm, while sitting. HR: 84 (regular and normal rate). RR: 20 (regular). O2 saturation: 100% on nasal cannula at 2 liters/minute. End tidal CO2: 30 mmHg. Pain level now: 0/10. --13:34 Rebecca Hogan R.N. ( Patient given purse so she can use her phone to call daughter. Informed patient she is probably going to be admitted for observation. She states her understanding to this). --13:34 Rebecca Hogan R.N. 13:47 09/05/16. BP: 192/77 (regular adult cuff) taken on the right arm, while sitting. HR: 82 (regular and normal rate). RR: 18. O2 saturation: 100% on nasal cannula at 2 liters/minute. End tidal CO2: 27 mmHg; adult colorimetric detector used. Pain level now: 0/10. --13:48 Rebecca Hogan R.N. 13:59 09/05/16. BP: 197/81 (regular adult cuff) taken on the right arm, while sitting. HR: 82. RR: 20. O2 saturation: 99% on nasal cannula at 2 liters/minute. End tidal CO2: 30 mmHg; adult colorimetric detector used. Pain level now: 0/10. --14:00 Rebecca Hogan R.N. 14:32 09/05/16. BP: 187/86. HR: 84. RR: 16. O2 saturation: 98%. End tidal CO2: 28mmHg. --14:36 Alonso Sosa R.N. Cardiac rhythm: normal sinus rhythm; unifocal PVCs. Reassurance given (No complaints at this time). --14:36 Alonso Sosa R.N. 15:29 09/05/2016 Aspirin PO Tablets 325 mg given. Allergies verified and confirmed 5 rights. --15:29 Rebecca Hogan R.N. ( Oxygen removed from patient, patient requested and physician ok'd). --15:30 Rebecca Hogan R.N. 15:31 09/05/16. BP: 185/86 (regular adult cuff) taken on the right arm, while sitting. HR: 98 (regular and normal rate). RR: 18. O2 saturation: 98% on room air. Pain level now: 7/10. Additional comments: neck pain. --15:31 Rebecca Hogan R.N. Patient transported to MRI by wheelchair with tech. (15:39 Sep 05 2016). --15:39 Rebecca Hogan R.N. Patient returned from MRI by wheelchair with tech. (16:21 Sep 05 2016). --16:21 Rebecca Hogan R.N. 16:32 09/05/2016 Metoprolol (Metoprolol Tartrate) IVP 5 mg given over 5 minute(s) via site #2. Allergies verified and confirmed 5 rights. IV patency established. IV site checked: no pain, redness, or swelling. IV flushed thoroughly pre- and post-medication administration. IVP given by RN. --16:32 Rebecca Hogan R.N. 16:41 09/05/2016 Magnesium Sulfate (Magnesium Sulfate in D5W) IVP 2 gm given over 2 hour(s) via site #1. Allergies verified and confirmed 5 rights. IV patency established. IV site checked: no pain, redness, or swelling. IV flushed thoroughly pre- and post-medication administration. IVP given by RN. --16:41 Rebecca Hogan R.N. DISPOSITION / DISCHARGE Report was given to a nurse via a phone call. Report included patient's care, treatment, medications, reviewed medication reconcilliation, and condition (including any recent changes or anticipated changes). All questions were answered. Report was acknowledged and care was transferred. (Nora DAVIS). Bed obtained and ready (210B). --16:10 Rebecca Hogan R.N. 16:41 09/05/16. BP: 176/81. HR: 68. RR: 18. O2 saturation: 100% on room air. Temp: 98.5 F (oral). Pain level now: 08/27. --16:46 Rebecca Hogan R.N. 16:46 09/05/16. --16:46 Rebecca Hogan R.N. 16:59 09/05/2016 Site #[address] upon transfer; patent, no pain and no signs of infection or infiltration. Good blood return present. --16:59 Rebecca Hogan R.N. 16:59 09/05/2016 Site #[address] upon transfer; patent, no pain and no signs of infection or infiltration. Good blood return present. Flushed with 10 mL saline; flushes easily. --16:59 Rebecca Hogan R.N. 17:00 09/05/16. Departure time: 16:41 Sep 05 2016. Disposition: observation in Acute Care. --17:00 Rebecca Hogan R.N. Locked/Released at 09/05/2016 17:03 by Rebecca Hogan R.N.
--- NOTE | 2016-09-05 15:49 | Progress Note ---
Subjective General Admission History and Physical Examination Patient Name: Katia Bustamante Admission Date: September 05, 2016 Primary Care Provider: Ranjit Rosado M.D. Attending Physician: Kristopher Dueñas M.D. Admitting Physician: Kristopher Dueñas M.D. Code Status: FULL CODE Room: 206 SUBJECTIVE Historian: Patient Reliability: Good Chief Complaint: Suspected stroke, speech abnormalities History of Present Illness: The patient is a 80-year-old white female with a significant past make a history of hypertension, hypercholesterolemia, polymyalgia rheumatica, degenerative joint disease, hypothyroidism, gastroesophageal reflux, who presented to [facility] emergency department on the day of admission secondary to speech difficulties with suspected TIA. [facility] ER evaluation was consistent with TIA. Secondary to the above, the patient was admitted by Kristopher Dueñas M.D. for further evaluation and treatment. PAST MEDICAL HISTORY Illnesses: 1. Cervical radiculopathy 2. Gastroesophageal reflux 3. Hypothyroidism 4. Hypercholesterolemia 5. Generalized anxiety disorder 6. Hypertension 7. Depression 8. Degenerative joint disease. Allergies: 1. Amoxicillin 2. Lipitor 3. Lisinopril 4. Sulfa Medications: 1. Zoloft 50 mg by mouth daily 2. Prednisone 15 mg by mouth daily 3. Prilosec 20 mg by mouth twice a day 4. Synthroid 0.112 mg by mouth daily 5. Vicodin 5/325 one by mouth every 6 hours when necessary pain 6. Folic acid 1 mg by mouth daily 7. Lidocaine patch 5% topically daily 8. vitamin 1 by mouth daily 9. Diclofenac 1% gel apply topically to affected area 4 times a day 10. Pravastatin 10 mg by mouth daily 11. Losartan 100 mg by mouth daily 12. Magnesium dosage unknown daily Surgery: 1. Thyroidectomy 2. Hysterectomy 3. Cholecystectomy Injuries: 1. Knee injury Hospitalizations: 1. For about surgery and medical problems FAMILY HISTORY Parents: 1. Father: , 73, heart disease and kidney disease 2. Mother, , 98, hold old age" Siblings: 1. The patient has one sibling age 78 with history of back problems Children: 1. The patient has 2 children age 58, 60 with no medical problems. Other significant family history: None SOCIAL HISTORY 1. Marital Status: 2. Restoration: Taoism-Yazidism 3. Education: High school 4. Employment History: Retired 5. Occupational health exposures: No significant HABITS 1. Tobacco: 30 pack years, stopped in 1987 2. Drugs: None 3. Alcohol:12 ounces per week 4. Caffeine: 6 cups coffee per day HEALTH SUPERVISION Item/Test 1. Not reviewed IMMUNIZATIONS: 1. Pneumococcal: No 2. Influenza: No 3. Tetanus: No ADVANCED DIRECTIVES: 1. Living will: Yes 2. POLST: No 3. Code Status: FULL CODE 4. Durable Power Front Desk Lead Health care: Yes 5. Donor card: No REVIEW OF SYSTEMS Remarkable for those things stated in the history of present illness and past medical history. Seventeen point review of system completed with the following notable findings: general: Fatigue, pain, weakness Skin: Rash, dryness Eyes: Blurred vision Ears: Ringing, hearing loss Throat: Difficulty swallowing Cardiovascular: Ankle swelling, hypertension, leg pain with ambulation Genitourinary: Incontinence, nocturia, poor urinary stream Gastrointestinal: Gastroesophageal reflux, heartburn Musculoskeletal: Joint stiffness, joint pain, backache, muscle cramping Neurological: History of epilepsy Endocrine: Hypothyroidism Psychological: Depression, anxiety Physical Exam General Appearance Alert, Oriented X3, Cooperative, No acute distress HEENT Atraumatic, PERRLA, EOMI, Moist mucous membranes Lungs Clear to auscultation Neck Supple, No JVD, No masses, 2+ carotid pulse wo bruit Cardiovascular Regular rate and rhythm, Normal S1 and S2, No murmurs, gallops, rubs Abdomen Normal bowel sounds, Soft, No tenderness Extremities No cyanosis, No clubbing, trace pedal edema Neurological Cranial nerves intact, Strength 5/5 x4 ext's, No lateralizing signs Psych/Mental Status Mental status normal, Mood normal LAB Results Laboratory Tests 09/05 09/05 1302 1255 Chemistry TSH 3rd Generation Cancelled Toxicology Urine Opiates Screen (NEGATIVE) NEGATIVE Urine Methadone Screen (NEGATIVE) NEGATIVE Ur Barbiturates Screen (NEGATIVE) NEGATIVE U Amphetamin/Meth Scrn (NEGATIVE) NEGATIVE MDMA (Ecstasy) Screen (NEGATIVE) NEGATIVE U Benzodiazepines Scrn (NEGATIVE) NEGATIVE Urine Cocaine Screen (NEGATIVE) NEGATIVE U Cannabinoids Screen (NEGATIVE) NEGATIVE Urines Urine Color STRAW Urine Appearance CLEAR Urine pH (5.0 - 8.0) 7.0 Ur Specific [place] (1.010 - 1.030) 1.010 Urine Protein (NEGATIVE) NEGATIVE Urine Ketones (NEGATIVE) NEGATIVE Urine Blood (NEGATIVE) 1+ Urine Nitrite (NEGATIVE) NEGATIVE Urine Bilirubin (NEGATIVE) NEGATIVE Urine Urobilinogen (0.2 - 1.0 EU/dL) 0.2 Ur Leukocyte Esterase (NEGATIVE) NEGATIVE Urine RBC (0 - 1 rbc/hpf) NONE SEEN Urine WBC (0 - 1 wbc/hpf) NONE SEEN Ur Epithelial Cells (0 - 5 EPI/hpf) NONE SEEN Urine Bacteria (NONE SEEN) NONE SEEN Urine Glucose (NEGATIVE) NEGATIVE Urine Comment CULT NOT INDICATED 09/05 1235 Chemistry Plasma Sodium (136 - 145 mmol/L) 136 Plasma Potassium (3.5 - 5.1 mmol/L) 3.8 Plasma Chloride (98 - 107 mmol/L) 99 CO2 (Enzymatic) (21 - 32 mmol/L) 24 BUN (7 - 18 mg/dL) 23 Creatinine (0.6 - 1.3 mg/dL) 0.8 Est GFR ( Amer) (mL/min) >60 Est GFR (Non-Af Amer) (mL/min) >60 Glucose (70 - 110 mg/dL) 94 Plasma Calcium (8.5 - 10.1 mg/dL) 9.2 Plasma Magnesium (1.8 - 2.4 mg/dL) 1.5 Total Bilirubin (0.0 - 1.0 mg/dL) 0.3 AST (15 - 37 U/L) 19 ALT (12 - 78 U/L) 23 Alkaline Phosphatase (46 - 116 U/L) 61 Creatine Kinase (24 - 260 U/L) 44 Troponin (0.00 - 1.5 ng/mL) <0.05 Total Protein (6.4 - 8.2 g/dL) 7.1 Albumin (3.3 - 5.0 g/dL) 3.6 TSH 3rd Generation (0.30 - 3.74 uIU/mL) 1.011 Coagulation INR (0.8 - 1.2) 1.0 APTT (24 - 34 SECONDS) 29 Fibrinogen (193 - 455 mg/dL) 370 D-Dimer, Quantitative (0.27 - 0.52 ug/mLFEU) 0.51 Hematology WBC (4.5 - 11.5 K/uL) 11.8 RBC (4.00 - 5.20 M/uL) 4.31 Hgb (12.0 - 16.0 gm/dL) 12.7 Hct (36.0 - 46.0 %) 38.1 MCV (80 - 100 fL) 88 MCH (26 - 34 pg) 29 RDW (11.6 - 14.8 %) 15.3 Neut % (Auto) (50 - 75 %) 85.5 Lymph % (Auto) (25 - 40 %) 9.1 [place] % (Auto) (3 - 14 %) 4.5 Eos % (Auto) (0 - 4 %) 0.5 Baso % (Auto) (0 - 2 %) 0.4 Plt Count, EDTA (150 - 400 K/uL) 351 PUBS MCHC (31 - 37 g/dL) 33 Toxicology Carbamazepine (4.0 - 12.0 ug/mL) < 0.[address] Scan-Head IMPRESSION: 1. Moderate atrophy and white matter chronic ischemic changes. A small acute CVA could be obscured by these underlying chronic ischemic changes. MRI may be useful for further evaluation if clinically warranted. 2. Partial right mastoid air cells opacification suggestive of mastoiditis 3. Findings discussed with Dr. Jerry at 12:49 p.m., [place] Standard Time Dictated by: BROCK FONTANA MD D: ABIMAEL;09/05/16 1252 Carotid Doppler and Ultrasound IMPRESSION: 1. Minimal plaque formation of the bifurcations bilaterally 2. Bilateral ICA 5-15% stenosis 3. Cardiac arrhythmia Dictated by: BROCK FONTANA MD D: ABIMAEL;09/05/16 1358 Assessment and Plan Problem List 1. TIA (transient ischemic attack) Plan -Patient presents with findings of TIA. -Neurological symptoms resolved prior to admission -CT scan unremarkable -Carotid Doppler and ultrasound unremarkable -MRI unremarkable Current status: Fair, unstable Anticipated discharge date: Anticipated discharge in a.m. if stable Anticipated discharge placement: Home Patient care time: Time spent in chart review, patient interview, physical exam, CPOE, and care documentation: 70 minutes Visit to patient today: 2 Complexity of care: Moderate Initial patient evaluation: Emergency department Advance care plan: Full code, advance care plan documented DVT prophylaxis: Lovenox 40 mg subcutaneous daily GI prophylaxis: Protonix 40 mg by mouth daily E&M Codes Admission: Obsv-Comp/Moderate/[id number]
--- NOTE | 2016-09-05 16:40 | DIAGNOSTIC IMAGING REPORT ---
PROCEDURE: MR BRAIN WITHOUT CONTRAST INDICATION: ALTERED MENTAL STATUS TECHNIQUE: Sagittal T1 FLAIR; coronal T2; axial T1 FLAIR, T2-weighted FLAIR, T2 FSE, gradient echo T2, DWI and ADC sequences. COMPARISON: Head CT 09/05/2016. FINDINGS: Moderate cortical atrophy and white matter chronic ischemic changes bilaterally. Mild chronic ischemic changes of the miriam. There is no evidence of an acute CVA, hemorrhage, mass or midline shift. Normal vascular flow voids. Orbits and sinuses are clear. Opacification of the mastoids bilaterally. IMPRESSION: 1. No evidence of an acute CVA 2. Moderate atrophy 3. Moderate white matter and mild pontine chronic ischemic changes 4. Opacification of the mastoids bilaterally suggestive of mastoiditis 5. Results discussed with Dr. Jerry
[2016-09-05 17:20] VITALS: BP 168/73
--- NOTE | 2016-09-05 17:30 | ED MAR SUMMARY ---
..... Medication Administration Record [facility] [address] [place] [address] Patient: NAVYA CUETO Visit ID: [id number] 80y, F Weight: 72.0 kg Height/Length: 64 in BMI: 27.3 ALLERGIES: Statins, Sulfa Antibiotics, LIsinopril, Atorvastatin, Flu Virus Vaccine, Amoxicillin, Macrobid Given 15:29 09/05/2016 Rebecca Hogan R.N. Medication Administered: ASPIRIN [PO], Dose: 325 mg Tablets PO. Medication Ordered: Aspirin PO 325 mg (NOW). Given 16:32 09/05/2016 Rebecca Hogan R.N. Medication Administered: METOPROLOL [IVP] (METOPROLOL TARTRATE), Dose: 5 mg IVP over 5 minute(s), Site: #2 left AC. Medication Ordered: Metoprolol IV 5 mg (HIGH ALERT MEDICATION, NOW). Given 16:41 09/05/2016 Rebecca Hogan R.N. Medication Administered: MAGNESIUM SULFATE [IVP] (MAGNESIUM SULFATE IN D5W), Dose: 2 gm IVP over 2 hour(s), Site: #1 right AC. Medication Ordered: Magnesium Sulfate IV 2 gm/50mL (over 2 hours).
--- NOTE | 2016-09-05 17:30 | ED MAR SUMMARY ---
..... Medication Administration Record [facility] [address] [place] [address] Patient: NAVYA CUETO Visit ID: [id number] 80y, F Weight: 72.0 kg Height/Length: 64 in BMI: 27.3 ALLERGIES: Statins, Sulfa Antibiotics, LIsinopril, Atorvastatin, Flu Virus Vaccine, Amoxicillin, Macrobid Given 15:29 09/05/2016 Rebecca Hogan R.N. Medication Administered: ASPIRIN [PO], Dose: 325 mg Tablets PO. Medication Ordered: Aspirin PO 325 mg (NOW). Given 16:32 09/05/2016 Rebecca Hogan R.N. Medication Administered: METOPROLOL [IVP] (METOPROLOL TARTRATE), Dose: 5 mg IVP over 5 minute(s), Site: #2 left AC. Medication Ordered: Metoprolol IV 5 mg (HIGH ALERT MEDICATION, NOW). Given 16:41 09/05/2016 Rebecca Hogan R.N. Medication Administered: MAGNESIUM SULFATE [IVP] (MAGNESIUM SULFATE IN D5W), Dose: 2 gm IVP over 2 hour(s), Site: #1 right AC. Medication Ordered: Magnesium Sulfate IV 2 gm/50mL (over 2 hours).
--- NOTE | 2016-09-05 17:30 | ED MED RECONCILIATION SUMMARY ---
Patient: NAVYA CUETO Medication Reconciliation Report [facility] VisitID: [id number] [address] [place] [address] 80y, F Registration Date/Time: 09/05/2016 Weight: 72 kg Height/Length: 64 in. BMI: 27.3 ALLERGIES: Amoxicillin, Atorvastatin, Flu Virus Vaccine, LIsinopril, Macrobid, Statins, Sulfa Antibiotics The patient's Home Medications are listed below: THE FOLLOWING MEDICATIONS NEED TO BE RECONCILED: Diclofenac Epolamine Transdermal, QID Folic Acid Oral (1 mg), daily Levothyroxine Sodium Oral 112 mcg, daily Lidoderm External (5 %), daily, Remove patch nightly Losartan Potassium Oral 100 mg, daily Magnesium Oral Multivitamins Oral Omeprazole Oral 20 mg, daily Pravastatin Sodium Oral (10 mg), 2x a day PredniSONE Oral 15 mg, daily Prenate Oral Sertraline HCl Oral 50 mg, daily Tiffanie-C Oral The source(s) of the original Home Medication information: Not obtained. The following Medications were given to the patient in the Emergency Department: Aspirin [PO] PO 325 mg, administered: 09/05/2016 3:29:00 PM Metoprolol [IVP] IVP 5 mg, administered: 09/05/2016 4:32:00 PM Magnesium Sulfate [IVP] IVP 2 gm, administered: 09/05/2016 4:41:00 PM The following Medications were prescribed to the patient: None.
--- NOTE | 2016-09-05 17:30 | ED MED RECONCILIATION SUMMARY ---
Patient: NAVYA CUETO Medication Reconciliation Report [facility] VisitID: [id number] [address] [place] [address] 80y, F Registration Date/Time: 09/05/2016 Weight: 72 kg Height/Length: 64 in. BMI: 27.3 ALLERGIES: Amoxicillin, Atorvastatin, Flu Virus Vaccine, LIsinopril, Macrobid, Statins, Sulfa Antibiotics The patient's Home Medications are listed below: THE FOLLOWING MEDICATIONS NEED TO BE RECONCILED: Diclofenac Epolamine Transdermal, QID Folic Acid Oral (1 mg), daily Levothyroxine Sodium Oral 112 mcg, daily Lidoderm External (5 %), daily, Remove patch nightly Losartan Potassium Oral 100 mg, daily Magnesium Oral Multivitamins Oral Omeprazole Oral 20 mg, daily Pravastatin Sodium Oral (10 mg), 2x a day PredniSONE Oral 15 mg, daily Prenate Oral Sertraline HCl Oral 50 mg, daily Tiffanie-C Oral The source(s) of the original Home Medication information: Not obtained. The following Medications were given to the patient in the Emergency Department: Aspirin [PO] PO 325 mg, administered: 09/05/2016 3:29:00 PM Metoprolol [IVP] IVP 5 mg, administered: 09/05/2016 4:32:00 PM Magnesium Sulfate [IVP] IVP 2 gm, administered: 09/05/2016 4:41:00 PM The following Medications were prescribed to the patient: None.
--- NOTE | 2016-09-05 17:30 | ED DISCHARGE INSTRUCTIONS ---
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 Uncontrolled essential hypertension. Mild hypomagnesemia. Mild leukocytosis. No lymphocytosis. Chronic low back pain. INSTRUCTIONS Follow-up: Screening today revealed the patient's blood pressure to be in the hypertensive range. The patient should follow up with a primary care provider for blood pressure management. The patient was admitted and blood pressure will be managed during the admission. ADDITIONAL INFORMATION High Blood Pressure --Established High Blood Pressure (Hypertension) is a chronic disease. The cause is unknown in most cases. It can usually be controlled with lifestyle changes and/or medicines. Symptoms of high blood pressure may include headache, dizziness, visual changes, chest pain and shortness of breath. Sometimes it causes no symptoms at all. However, even if there are no symptoms, untreated high blood pressure increases the risk of heart attack, also known as acute myocardial infarction, or AMI, and stroke. It is a serious health risk and should not be ignored. A normal blood pressure is 120/80 or less. The first (top) number is the "systolic" pressure. The second (bottom) number is the "diastolic" pressure. Hypertension exists when either the top number is 140 or higher, OR the bottom number is 90 or higher on repeated measurements. Home Care: All patients with high blood pressure should do the following to lower their pressure. If you are on medicines, then these methods may reduce or eliminate your need for medicines in the future. Begin a weight loss program if you are overweight. Reduce your salt intake. Avoid high salt foods (olives, pickles, smoked meats, salted potato chips, etc.). Do not add salt to your food at the table. Use only small amounts of salt when cooking. Begin an exercise program. Discuss with your doctor what type of exercise program would be best for you. It doesn't have to be difficult. Even brisk walking for 20 minutes three times a week is a good form of exercise. Avoid medicines which contain heart stimulants. This includes many cold and sinus decongestant pills and sprays as well as diet pills. Check the warnings about hypertension on the label. Stimulants such as amphetamine or cocaine could be lethal for someone with hypertension. Never take these. Limit your caffeine intake or switch to caffeine-free products. Stop smoking. If you are a long-time smoker, this can be hard. Enroll in a stop-smoking program to improve your chance of success. Learning how to handle stress better is an important part of any program to lower blood pressure. Learn about relaxation methods such as meditation, yoga or biofeedback. If medicines were prescribed, take them exactly as directed. Missing doses may cause your blood pressure get out of control. Consider buying an automatic blood pressure machine (available at most pharmacies). Use this to monitor your blood pressure at home and report the results to your doctor. Follow Up: Regular visits to your own physician for blood pressure checks and medicine adjustment is an important part of your care. Make a follow-up appointment as directed by our staff. Get Prompt Medical Attention if any of the following occur: Chest pain or shortness of breath Severe headache Throbbing or rushing sound in the ears Nosebleed Sudden severe abdominal pain Extreme drowsiness, confusion or fainting Dizziness or vertigo (dizziness with spinning sensation) Weakness of an arm or leg or one side of the face Difficulty with speech or vision You have been given the following additional information: Hypertension, Established (Electronically signed by Reza Jerry DO 09/05/2016 17:30)
--- NOTE | 2016-09-05 20:07 | Progress Note ---
Subjective General ADVANCED CARE PLAN History of Present Illness The patient is a 80-year-old white female with a significant past make a history of hypertension, hypercholesterolemia, polymyalgia rheumatica, degenerative joint disease, hypothyroidism, gastroesophageal reflux, who presented to [facility] emergency department on the day of admission secondary to speech difficulties with suspected TIA. [facility] ER evaluation was consistent with TIA. Secondary to the above, the patient was admitted by Kristopher Dueñas M.D. for further evaluation and treatment. For other history present illness, past medical history, family history, social history, review of systems, and admission physical examination please see the patient's history and physical examination and ER visit note in the patient's medical record. A discussion was undertaken with the patient regarding previous advance care arrangements/decisions. The following advanced directives were noted by the patient and discussed with me at the time of admission. ADVANCED DIRECTIVES: 1. Living well: Yes 2. POLST: No, POLST form distributed for patient to discuss with family physician 3. CODE STATUS: FULL CODE 4. 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 Donor card: No The patient has expressed interest for resuscitative efforts at the time of cardiopulmonary arrest. The patient's wishes were documented in the chart and orders regarding the patient's wishes entered into the [employer] system. The "Advance Care Plan Document" was not distributed to patient to discuss with her family. Less than 30 minutes was spent in performing the above tasks and documentation of the patient's advanced care plan.
--- NOTE | 2016-09-05 20:07 | Progress Note ---
Subjective General ADVANCED CARE PLAN History of Present Illness The patient is a 80-year-old white female with a significant past make a history of hypertension, hypercholesterolemia, polymyalgia rheumatica, degenerative joint disease, hypothyroidism, gastroesophageal reflux, who presented to [facility] emergency department on the day of admission secondary to speech difficulties with suspected TIA. [facility] ER evaluation was consistent with TIA. Secondary to the above, the patient was admitted by Kristopher Dueñas M.D. for further evaluation and treatment. For other history present illness, past medical history, family history, social history, review of systems, and admission physical examination please see the patient's history and physical examination and ER visit note in the patient's medical record. A discussion was undertaken with the patient regarding previous advance care arrangements/decisions. The following advanced directives were noted by the patient and discussed with me at the time of admission. ADVANCED DIRECTIVES: 1. Living well: Yes 2. POLST: No, POLST form distributed for patient to discuss with family physician 3. CODE STATUS: FULL CODE 4. 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 Donor card: No The patient has expressed interest for resuscitative efforts at the time of cardiopulmonary arrest. The patient's wishes were documented in the chart and orders regarding the patient's wishes entered into the [employer] system. The "Advance Care Plan Document" was not distributed to patient to discuss with her family. Less than 30 minutes was spent in performing the above tasks and documentation of the patient's advanced care plan.
[2016-09-05 22:54] VITALS: BP 187/86
[2016-09-06 05:06] VITALS: BP 170/74
[2016-09-06 07:08] VITALS: BP 204/99
--- NOTE | 2016-09-06 07:23 | Discharge Summary ---
Discharge Summary Report Admit Date 09/05/16 Discharge Date 09/06/16 Admission Diagnosis 1. TIA Discharge Diagnosis 1. TIA 2. Hypomagnesemia 3. Hypercholesterolemia. 4. Hypertension Brief History The patient is a 80-year-old white female with a significant past make a history of hypertension, hypercholesterolemia, polymyalgia rheumatica, degenerative joint disease, hypothyroidism, gastroesophageal reflux, who presented to [facility] emergency department on the day of admission secondary to speech difficulties with suspected TIA. [facility] ER evaluation was consistent with TIA. Secondary to the above, the patient was admitted by Kristopher Dueñas M.D. for further evaluation and treatment. For other history present illness, past medical history, family history, social history, review of systems, and admission physical examination please see the patient's history and physical examination and ER visit note in the patient's medical record. Hospital Course The following problems and their management were noted during the patient's hospitalization: 1. TIA The patient was admitted with findings of TIA. Symptoms resolved prior to her presentation at [facility] emergency department. She experienced problems with findings only. No other neurological abdomen management were identified. Follow-up evaluation included carotid Doppler and ultrasound, CT scan, and MRI. These were all unremarkable. The patient was scheduled for outpatient echocardiogram. She was discharged on aspirin 325 mg by mouth daily. 2. Hypomagnesemia The patient was noted to have mild hypomagnesemia. She was treated with IV/by mouth supplementation. She was discharged on Slow-Mag one by mouth twice a day. Outpatient follow up with PCP this week 3. Hypercholesterolemia The patient has a history of hypercholesterolemia. Lipid profile was obtained during her hospitalization which showed elevation of total cholesterol at 240, LDL 152, HDL 72. It was recommended she increase her pravastatin to 20 g by mouth daily. Follow-up with her PCP for ongoing evaluation and treatment of this problem. 4. Hypertension The patient had persistent hypertension during her hospitalization. She refuses adjustments in her antihypertensive therapy. She tried the health risk of not controlling ongoing blood pressure elevation. I've ask her to follow-up with her PCP this week for reevaluation and adjustments in antihypertensive therapy. She was discharged on a low-salt diet. 5. Obstructive sleep apnea Discharge to family raised the concerns of possible obstructive sleep apnea. I' ve recommended the patient follow-up with her PCP for scheduling of outpatient sleep study. The patient was not observed having any apneic episodes during her hospital stay. O2 sat remained within normal range. Lab/Imaging Laboratory Tests 09/06 09/05 09/05 0525 1302 1255 Chemistry Plasma Sodium (136 - 145 mmol/L) 136 Plasma Potassium (3.5 - 5.1 mmol/L) 4.0 Plasma Chloride (98 - 107 mmol/L) 102 CO2 (Enzymatic) (21 - 32 mmol/L) 27 BUN (7 - 18 mg/dL) 14 Creatinine (0.6 - 1.3 mg/dL) 0.7 Est GFR ( Amer) (mL/min) >60 Est GFR (Non-Af Amer) (mL/min) >60 Glucose (70 - 110 mg/dL) 98 Plasma Calcium (8.5 - 10.1 mg/dL) 8.6 Triglycerides (30 - 200 mg/dL) 120 Cholesterol (140 - 200 mg/dL) 248 LDL Cholesterol, Calc (mg/dL) 152 HDL Cholesterol (32 - 96 mg/dL) 72 LDL/HDL Ratio 2.1 Cholesterol/HDL Ratio 3.4 Coronary Risk Interp (0.4 - 1.0) 0.7 TSH 3rd Generation Cancelled Hematology WBC (4.5 - 11.5 K/uL) 6.7 RBC (4.00 - 5.20 M/uL) 4.32 Hgb (12.0 - 16.0 gm/dL) 12.5 Hct (36.0 - 46.0 %) 37.8 MCV (80 - 100 fL) 88 MCH (26 - 34 pg) 29 RDW (11.6 - 14.8 %) 14.7 Neut % (Auto) (50 - 75 %) 55 Lymph % (Auto) (25 - 40 %) 34 Franklin % (Auto) (3 - 14 %) 2 Eos % (Auto) (0 - 4 %) 1 Baso % (Auto) (0 - 2 %) 1 Band Neutrophils % (0 - 8 %) 7 Metamyelocytes % (0 - 1 %) 0 Myelocytes (0 - 1 %) 0 Other Cell Type 0 Plt Count, EDTA (150 - 400 K/uL) 333 Anisocytosis (manual) 1+ PUBS MCHC (31 - 37 g/dL) 33 Toxicology Urine Opiates Screen (NEGATIVE) NEGATIVE Urine Methadone Screen (NEGATIVE) NEGATIVE Ur Barbiturates Screen (NEGATIVE) NEGATIVE U Amphetamin/Meth Scrn (NEGATIVE) NEGATIVE MDMA (Ecstasy) Screen (NEGATIVE) NEGATIVE U Benzodiazepines Scrn (NEGATIVE) NEGATIVE Urine Cocaine Screen (NEGATIVE) NEGATIVE U Cannabinoids Screen (NEGATIVE) NEGATIVE Urines Urine Color STRAW Urine Appearance CLEAR Urine pH (5.0 - 8.0) 7.0 Ur Specific Royal (1.010 - 1.030) 1.010 Urine Protein (NEGATIVE) NEGATIVE Urine Ketones (NEGATIVE) NEGATIVE Urine Blood (NEGATIVE) 1+ Urine Nitrite (NEGATIVE) NEGATIVE Urine Bilirubin (NEGATIVE) NEGATIVE Urine Urobilinogen (0.2 - 1.0 EU/dL) 0.2 Ur Leukocyte Esterase (NEGATIVE) NEGATIVE Urine RBC (0 - 1 rbc/hpf) NONE SEEN Urine WBC (0 - 1 wbc/hpf) NONE SEEN Ur Epithelial Cells (0 - 5 EPI/hpf) NONE SEEN Urine Bacteria (NONE SEEN) NONE SEEN Urine Glucose (NEGATIVE) NEGATIVE Urine Comment CULT NOT INDICATED 09/05 1235 Chemistry Plasma Sodium (136 - 145 mmol/L) 136 Plasma Potassium (3.5 - 5.1 mmol/L) 3.8 Plasma Chloride (98 - 107 mmol/L) 99 CO2 (Enzymatic) (21 - 32 mmol/L) 24 BUN (7 - 18 mg/dL) 23 Creatinine (0.6 - 1.3 mg/dL) 0.8 Est GFR ( Amer) (mL/min) >60 Est GFR (Non-Af Amer) (mL/min) >60 Glucose (70 - 110 mg/dL) 94 Plasma Calcium (8.5 - 10.1 mg/dL) 9.2 Plasma Magnesium (1.8 - 2.4 mg/dL) 1.5 Total Bilirubin (0.0 - 1.0 mg/dL) 0.3 AST (15 - 37 U/L) 19 ALT (12 - 78 U/L) 23 Alkaline Phosphatase (46 - 116 U/L) 61 Creatine Kinase (24 - 260 U/L) 44 Troponin (0.00 - 1.5 ng/mL) <0.05 Total Protein (6.4 - 8.2 g/dL) 7.1 Albumin (3.3 - 5.0 g/dL) 3.6 TSH 3rd Generation (0.30 - 3.74 uIU/mL) 1.011 Coagulation INR (0.8 - 1.2) 1.0 APTT (24 - 34 SECONDS) 29 Fibrinogen (193 - 455 mg/dL) 370 D-Dimer, Quantitative (0.27 - 0.52 ug/mLFEU) 0.51 Hematology WBC (4.5 - 11.5 K/uL) 11.8 RBC (4.00 - 5.20 M/uL) 4.31 Hgb (12.0 - 16.0 gm/dL) 12.7 Hct (36.0 - 46.0 %) 38.1 MCV (80 - 100 fL) 88 MCH (26 - 34 pg) 29 RDW (11.6 - 14.8 %) 15.3 Neut % (Auto) (50 - 75 %) 85.5 Lymph % (Auto) (25 - 40 %) 9.1 Franklin % (Auto) (3 - 14 %) 4.5 Eos % (Auto) (0 - 4 %) 0.5 Baso % (Auto) (0 - 2 %) 0.4 Plt Count, EDTA (150 - 400 K/uL) 351 PUBS MCHC (31 - 37 g/dL) 33 Toxicology Carbamazepine (4.0 - 12.0 ug/mL) < 0.5 Discharge Instructions/Meds For other recommendations regarding discharge diet, activity, followup, and discharge medications please see the patient's discharge instructions. Discharge condition: Fair, improved Greater than 30 min. was spent in the patient's discharge preparation including discharge interview and physical examination, progress note, discharge instructions, and discharge summary The patient was interviewed and examined on the day of discharge. E&M Codes Discharge: Observation - All/[id number]
--- NOTE | 2016-09-06 09:15 | Provider's Discharge Care Plan ---
Problem, Goal, Plan Problem List 1. TIA (transient ischemic attack) Goals: Improve disease control, Prevent disease progress Instructions: Follow up as directed, Take meds as directed, Follow up for echocardiogram as scheduled. 2. Hypercholesteremia Goals: Improve disease control, Prevent disease progress Instructions: Follow up as directed, Take meds as directed, Avoid processed foods, Low cholesterol/fat diet 3. Hypertension Goals: Improve disease control, Prevent disease progress Instructions: Follow up as directed, Take meds as directed, Avoid processed foods 4. Hypomagnesemia Goals: Improve disease control, Prevent disease progress Instructions: Follow up as directed, Take meds as directed 5. PALOMO (obstructive sleep apnea) Goals: Improve disease control, Prevent disease progress Instructions: Follow up as directed, Take meds as directed, Have your family physician schedule sleep study.
[2016-09-06] MEDS ORDERED: LIDODERM5 % TOP (09:55)
[2016-09-06] MEDS ORDERED: ZOLOFT50 MG PO (09:55)
[2016-09-06] MEDS ORDERED: FOLIC ACID1 MG PO (09:56)
[2016-09-06] MEDS ORDERED: PRILOSEC20 MG PO (09:59)
[2016-09-06] MEDS ORDERED: PREDNISONE5 MG PO (10:00)
[2016-09-06] MEDS ORDERED: PRENATAL MULTI1 CAP PO (10:01)
[2016-09-06] MEDS ORDERED: VOLTAREN1 % TOP (10:03)
[2016-09-06] MEDS ORDERED: LEVOTHYROXINE112 MCG PO (10:04)
[2016-09-06] MEDS ORDERED: LOSARTAN POTAS100 MG PO (10:04)
[2016-09-06] MEDS ORDERED: PRAVASTATIN SOD10 MG PO (10:07)
[2016-09-06] MEDS ORDERED: MULTIPLE VITAMIN PO (10:09)
[2016-09-06] MEDS ORDERED: VITAMIN C500 M1 PO (10:09)
[2016-09-06] MEDS ORDERED: MAGNESIUM400 M1 PO (10:11)
[2016-09-06 10:29] VITALS: BP 143/78
[2016-09-06] MEDS ORDERED: MAG6464 MG PO (11:00)
[2016-09-06] MEDS ORDERED: ASPIRIN EC325 MG PO (11:05)
== END 2016-09-06 12:00 | disposition home or self-care (01) ==
LOC: ED SRH 12:22 → ACUTE2 SRH 15:32 → TRANS SRH 15:32 → ACUTE2 SRH 17:17
PROVIDERS: ADMIT Emergency Medicine
DX: G45.8 Other transient cerebral ischemic attacks and related syndromes (principal); I10 Essential (primary) hypertension; Z91.14 Patient's other noncompliance with medication regimen; E83.42 Hypomagnesemia; E78.00 Pure hypercholesterolemia, unspecified; M35.3 Polymyalgia rheumatica; G47.33 Obstructive sleep apnea (adult) (pediatric); J44.9 Chronic obstructive pulmonary disease, unspecified; F41.1 Generalized anxiety disorder; Z87.891 Personal history of nicotine dependence
CPT/HCPCS: 29230; 85241; 90001; 90004; 90047; 90074; 90100; 90155; 90616; 91004; 91295; 91556; 92095; 92610; 92690; 92720; 92760; 92761; 92762; 92763; 92764; 92765; 92766; 92767; 93140; 94001; 94050; 94060; 95059; 95061